=== PATIENT | female | born 1985 | race Caucasian/White ===

== ENCOUNTER 2022-03-16 13:28 | Outpatient (CLI) | payer BC | END 2022-03-16 13:29 | disposition home or self-care (01) | LOC: CSHULT 13:28 | PROVIDERS: ATTEND Family Medicine | DX: R19.00 Intra-abdominal and pelvic swelling, mass and lump, unspecified site (principal); M79.89 Other specified soft tissue disorders | CPT/HCPCS: 76705 ==